=== PATIENT | female | born 1970 | race Caucasian/White ===

== ENCOUNTER 2018-09-08 09:42 | Emergency (ER) | payer SELFPAY | END 2018-09-08 10:17 | disposition home or self-care (01) | LOC: ERS 09:42 | DX: L97.929 Non-pressure chronic ulcer of unspecified part of left lower leg with unspecified severity (principal); I25.10 Atherosclerotic heart disease of native coronary artery without angina pectoris; I10 Essential (primary) hypertension; F41.9 Anxiety disorder, unspecified; F32.9 Major depressive disorder, single episode, unspecified; Z79.899 Other long term (current) drug therapy | CPT/HCPCS: 99282 ==

== ENCOUNTER 2019-04-12 15:32 | Outpatient (CLI) | payer OTHER ==
[2019-04-12] MEDS ORDERED: Sodium Chloride 0.9% 15 ML NEB ONE (17:08)
--- NOTE | 2019-04-13 00:10 | HP ---
HISTORY OF PRESENT ILLNESS: Ms. Marlyn Lowery is a very pleasant 48-year-old, who [facility] of an ulceration of the left medial lower leg. The patient states that she developed a deep venous thrombosis of the left lower extremity in 2013. She states that in January of 2018, she noted the presence of a small opening over her left lower leg. She states that in May of this year, she sought medical attention and the ulceration was treated with p.o. Bactrim from May to December of this year. The patient states that she also received treatment for the ulceration with Bactroban ointment as well as a steroid cream. The patient states that she was referred by her primary care provider Shadia Rai to Dermatology. From Dermatology, the patient was referred to Dr. Fontenot. The patient was subsequently referred by Dr. Fontenot to the [facility]. PAST MEDICAL HISTORY: 1. Hypertension. 2. Coronary artery disease. PAST SURGICAL HISTORY: 1. Coronary artery bypass grafting. 2. Unilateral oophorectomy. 3. Hysterectomy with unilateral oophorectomy. 4. Tonsillectomy. 5. Bladder surgery. 6. Herniorrhaphy x2. MEDICATIONS: 1. Metoprolol. 2. Clopidogrel. 3. Atorvastatin. 4. Sertraline. 5. Tramadol. 6. Multivitamin. ALLERGIES: PENICILLIN, CODEINE, ASPIRIN, ERYTHROMYCIN, AND KEFLEX. SOCIAL HISTORY: Significant for tobacco use of 1 pack of cigarettes per day for 30 years. The patient states that she stopped smoking in April of 2017. FAMILY HISTORY: Significant for diabetes mellitus. The patient states that her grandmother was diagnosed with diabetes mellitus. Family history is also significant for coronary artery disease, the patient states that her grandmother was diagnosed with coronary artery disease. PHYSICAL EXAMINATION: VITAL SIGNS: Temperature 98.1, pulse 60, respirations 19, and blood pressure 136/65. GENERAL: A 48-year-old female, sitting on table in examination room, in no acute distress. HEENT: Normocephalic, atraumatic. NECK: No nuchal rigidity. CHEST: Clear to auscultation. CV: Regular rate and rhythm. ABDOMEN: Soft. EXTREMITIES: An ulceration of the left medial lower leg is present which measures approximately 0.8 x 0.8 cm. Granulation tissue is present within the wound margins. No purulent drainage is associated with the wound. No cellulitis of the left lower leg is appreciated. No maceration of the skin of the periwound is noted. Dorsalis pedis pulse is palpable on the left. No significant edema of the left foot or lower leg is present on exam today. The region of stasis dermatitis surrounds the ulceration. NEUROLOGIC: Grossly nonfocal. ASSESSMENT AND PLAN: 1. Chronic venous hypertension of left lower extremity with ulcer and inflammation. The patient has been given a prescription for Synalar ointment 0.025% to be applied to the region of stasis dermatitis up to twice a day. The patient has been instructed that the first application should be after cleansing of the skin with Dove soap and water and patting dry. The patient declines the application of a compression wrap today. She also states she is unable to tolerate compression garments. Arrangements will be made for referral for evaluation for venous ablation. The patient has also been given information regarding a pneumatic pump. Also, the patient has been instructed as to the benefit of walking or exercises to be performed for 5 minutes each hour while awake in order to promote venous return. The patient states she understands and is in agreement with the preceding treatment plan. The patient states she will return to clinic on an as-needed basis. 2. Hypertension. 3. Coronary artery disease. Job ID: [id number]
== END 2019-04-12 15:33 | disposition home or self-care (01) ==
LOC: WCC 15:32
PROVIDERS: ATTEND Family Medicine
DX: I87.332 Chronic venous hypertension (idiopathic) with ulcer and inflammation of left lower extremity (principal); L97.829 Non-pressure chronic ulcer of other part of left lower leg with unspecified severity; I87.2 Venous insufficiency (chronic) (peripheral); I10 Essential (primary) hypertension; I25.10 Atherosclerotic heart disease of native coronary artery without angina pectoris
CPT/HCPCS: A4218